=== PATIENT | female | born 1950 | race Two or more races ===

== ENCOUNTER 2022-01-26 09:30 | Inpatient (IN) | payer OTHER ==
[~2022-01-26 09:30] MED LIST: D3 + K2 DOTS 11 EACH PO; DIOVAN160 M1 PO; IRON236 MG PO; NAPROXEN SODIU220 M2 PO; [UNRECOGNIZED DRUG - OTHER]
[2022-01-31] MEDS ORDERED: ISOSORBIDE DINIT5 MG (10:27)
[2022-01-31] MEDS ORDERED: ATORVASTATIN CA40 MG (10:27)
[2022-01-31] MEDS ORDERED: VALSARTAN-HCTZ1 EAC1 (10:27)
[2022-01-31] MEDS ORDERED: DAFLONEX-XL 11300 MG (10:28)
[2022-02-02] MEDS ORDERED: INTEGRA PLUS C1 EACH PO (08:16)
[2022-02-02] MEDS ORDERED: XARELTO10 MG PO (08:16)
[2022-02-02] MEDS ORDERED: OXYC1TAB9 PO (08:16)
[2022-02-02] MEDS ORDERED: BACTRIM DS TAB1 EACH PO (08:16)
== END 2022-02-02 17:45 | disposition home or self-care (01) | DRG 470 ==
LOC: O/R 01-30 06:19 → SURG 01-30 06:19 → SURH 01-30 09:30 → SURG 01-30 13:22
PROVIDERS: ADMIT Orthopaedic Surgery Sports Medicine; ATTEND Orthopaedic Surgery Sports Medicine
PROC: 0SRC0J9 Replacement of Right Knee Joint with Synthetic Substitute, Cemented, Open Approach (ICD-10-PCS; principal; 2022-01-30 10:15)
PROC: 30233N1 Transfusion of Nonautologous Red Blood Cells into Peripheral Vein, Percutaneous Approach (ICD-10-PCS; 2022-02-01)
DX: M17.11 Unilateral primary osteoarthritis, right knee (principal); D62 Acute posthemorrhagic anemia; Z20.822 Contact with and (suspected) exposure to COVID-19

== ENCOUNTER 2024-11-24 10:32 | Outpatient (CLI) | payer OTHER ==
[~2024-11-24 10:32] MED LIST changes: +ATORVASTATIN CA40 MG; +BACTRIM DS TAB1 EACH PO; +DAFLONEX-XL 11300 MG; +INTEGRA PLUS C1 EACH PO; +ISOSORBIDE DINIT5 MG; +OXYC1TAB9 PO; +VALSARTAN-HCTZ1 EAC1; +XARELTO10 MG PO
== END 2024-11-24 10:40 | disposition home or self-care (01) ==
LOC: SONOGRAMA 10:32
PROVIDERS: ATTEND Specialist
DX: S30.92XA Unspecified superficial injury of abdominal wall, initial encounter (principal)

== ENCOUNTER 2024-12-11 11:16 | Inpatient (IN) | payer OTHER ==
[~2024-12-11] VITALS: Ht 154.9 cm; Wt 87.1 kg
--- NOTE | 2024-12-11 11:49 | NUR ---
PACIENTE FEMINA, S/V EN PARAMETROS NORMALES, C/C ULCERA AREA SACRAL, VIENE POR ADMISION DIRECTA DEL DR QUINTEROS PARA PROCEDIMIENTO QUIRURGICO, SE UBICA EN OBSERVACION PARA SER ADMITIDA.
[2024-12-11] MEDS ORDERED: VANCOMYCIN HCL 1,000 MG VIAL IV SCH (12:29)
[2024-12-11] MEDS ORDERED: CEFTRIAXONE SODIUM 2,000 MG in 0.9 % SODIUM CHLORIDE 100 ML IV SCH (12:30)
[2024-12-11] MEDS ORDERED: ACETAMINOPHEN 500 MG GEL..CAP PO PRN (12:30)
[2024-12-11] MEDS ORDERED: FAMOTIDINE/PF 20 MG in 0.9 % SODIUM CHLORIDE 8 ML IV PUSH SCH (12:30)
[2024-12-11] MEDS ORDERED: VANCOMYCIN HCL 1,000 MG VIAL ONE ×2 (12:46→22:16)
[2024-12-11] MEDS ORDERED: ACETAMINOPHEN 500 MG GEL..CAP PO ONE (12:46)
[2024-12-11] MEDS ORDERED: CEFTRIAXONE SODIUM 2,000 MG VIAL ONE (12:46)
[2024-12-11] MEDS ORDERED: FAMOTIDINE/PF 20 MG/2 ML VIAL ONE (12:47)
[2024-12-11] MEDS ORDERED: METOPROLOL TARTRATE 50 MG TABLET PO SCH (13:28)
[2024-12-11 13:30] LABS: ALT/SGPT 30.0 U/L (12-78); AST/SGOT 35.0 U/L (15-37); BILIRUBIN TOTAL 0.89 mg/dL (0.3-1.2); BUN CREA RATIO 19.0 (7.0-25.0); CREATININE SERUM 0.54 mg/dL (0.55-1.02); GFR 110.36; GLOBULINA 4.2 G/DL (2.4-3.5); GLUCOSE FASTING 144.0 mg/dL (65-100); OSMOLALITY SERUM 281.0 MOSM/KG (275-295)
[2024-12-11 13:49] LABS: URINE APPEARANCE Clear; URINE BILIRRUBIN Negative (NEGATIVE); URINE BLOOD Small; URINE COLOR Yellow; URINE GLUCOSE Negative (NEGATIVE); URINE KETONE Negative (NEGATIVE); URINE LEUKOCYTE Negative; URINE NITRATE Negative; URINE PROTEIN Negative (NEGATIVE); URINE UROBILINOGEN 0.2 E.U./dl
[2024-12-11 13:51] LABS: URINE BACTERIA 280.8 uL (0.0-1933); URINE EPITHELIAL CELLS 3.3 uL (0.0-38.8); URINE RBC 3.2 uL (0.0-20.8); URINE WBC 3.0 uL (0.0-23.2)
[2024-12-11] MEDS ORDERED: DEXTROSE 5 %-0.45 % SOD CHLORD 1,000 ML IV SCH (14:00)
[2024-12-11 14:02] LABS: URINE CAST 0.00 uL (0.0-1.40)
[2024-12-11 15:54] LABS: INR 1.1
[2024-12-11 21:27] LABS: BASO % 0.1 % (0.1-1.2); EOS # 0.02 (0.04-0.54); EOS % 0.2 % (0.7-7.0); LYMPH # 1.46 (1.18-3.74); LYMPH % 13.0 % (19.3-53.1); MEAN PLATELET VOLUME 12.30 fl (9.4-12.4); MONO # 1.71 (0.24-0.82); NEUT # 7.93 (1.56-6.13); NEUT % 70.8 % (34.0-71.1); RED CELL DISTRIBUTION WIDTH 13.7 % (11.6-14.4)
[2024-12-11 21:45] VITALS: BP 121/70; O2SAT 99
[2024-12-11 22:23] LABS: MONO % 15.3 % (4.7-12.5)
[2024-12-11 22:25] LABS: LYMPHOCYTE MAN 9.0 %; MONOCYTE MAN 13.0 %
[2024-12-11 22:26] LABS: NEUTROPHILS MAN 78.0 %
[2024-12-12] MEDS ORDERED: ENALAPRILAT DIHYDRATE 1.25 MG/ML VIAL IV PRN (05:15)
[2024-12-12 08:19] VITALS: BP 128/71; O2SAT 96
[2024-12-12] MEDS ORDERED: HYDROCHLOROTHIAZIDE 12.5 MG CAPSULE PO SCH (09:00)
[2024-12-12] MEDS ORDERED: PATIENTS OWN MEDICATION (MEDICAMENTO EN PISO) PO SCH (09:00)
[2024-12-12] MEDS ORDERED: VANCOMYCIN HCL 1,000 MG VIAL ONE ×2 (14:42→22:26)
[2024-12-12 15:15] LABS: BASO % 0.2 % (0.1-1.2); EOS # 0.02 (0.04-0.54); EOS % 0.2 % (0.7-7.0); LYMPH # 1.31 (1.18-3.74); LYMPH % 14.2 % (19.3-53.1); MEAN PLATELET VOLUME 13.10 fl (9.4-12.4); MONO # 1.48 (0.24-0.82); NEUT # 6.31 (1.56-6.13); NEUT % 68.6 % (34.0-71.1); RED CELL DISTRIBUTION WIDTH 13.7 % (11.6-14.4)
[2024-12-12 15:16] LABS: MONO % 16.1 % (4.7-12.5)
[2024-12-12 16:33] VITALS: BP 140/70; O2SAT 100
[2024-12-13 00:11] VITALS: BP 129/73; O2SAT 97
[2024-12-13] MEDS ORDERED: SILVER SULFADIAZINE 50 GM JAR TOP SCH (09:00)
[2024-12-13 09:47] VITALS: BP 148/73; O2SAT 97
[2024-12-13] MEDS ORDERED: PANTOPRAZOLE SODIUM 40 MG TABLET.DR PO NR (11:00)
[2024-12-13] MEDS ORDERED: VANCOMYCIN HCL 1,000 MG VIAL ONE ×2 (15:03→23:03)
[2024-12-13 16:06] VITALS: BP 144/76; O2SAT 100
[2024-12-14 01:08] VITALS: BP 139/76; O2SAT 100
[2024-12-14 08:13] VITALS: BP 133/66; O2SAT 100
[2024-12-14 08:36] LABS: BASO % 0.4 % (0.1-1.2); EOS # 0.12 (0.04-0.54); EOS % 1.7 % (0.7-7.0); LYMPH # 1.40 (1.18-3.74); LYMPH % 19.8 % (19.3-53.1); MEAN PLATELET VOLUME 13.40 fl (9.4-12.4); MONO # 1.40 (0.24-0.82); NEUT # 4.10 (1.56-6.13); NEUT % 57.9 % (34.0-71.1); RED CELL DISTRIBUTION WIDTH 13.6 % (11.6-14.4)
[2024-12-14 08:50] LABS: ALT/SGPT 23.0 U/L (12-78); AST/SGOT 23.0 U/L (15-37); BILIRUBIN TOTAL 0.46 mg/dL (0.3-1.2); BUN CREA RATIO 21.0 (7.0-25.0); CREATININE SERUM 0.52 mg/dL (0.55-1.02); GFR 115.27; GLOBULINA 3.1 G/DL (2.4-3.5); GLUCOSE FASTING 106.0 mg/dL (65-100); OSMOLALITY SERUM 285.0 MOSM/KG (275-295)
[2024-12-14] MEDS ORDERED: PATIENTS OWN MEDICATION (MEDICAMENTO EN PISO) PO SCH ×2 (09:00)
[2024-12-14] MEDS ORDERED: PANTOPRAZOLE SODIUM 40 MG TABLET.DR PO SCH (09:00)
[2024-12-14 10:19] LABS: MONO % 19.8 % (4.7-12.5)
[2024-12-14] MEDS ORDERED: VANCOMYCIN HCL 1,000 MG VIAL ONE ×2 (14:49→23:00)
[2024-12-14 15:00] VITALS: BP 125/83; O2SAT 98
[2024-12-15 00:57] VITALS: BP 116/68; O2SAT 100
[2024-12-15 08:00] VITALS: BP 108/74; O2SAT 95
[2024-12-15 15:36] VITALS: BP 133/80; O2SAT 100
[2024-12-15] MEDS ORDERED: VANCOMYCIN HCL 1,000 MG VIAL ONE ×2 (15:59→22:01)
[2024-12-16 02:48] VITALS: BP 117/68; O2SAT 98
[2024-12-16 08:45] VITALS: BP 133/76; O2SAT 97
[2024-12-16] MEDS ORDERED: hydrALAZINE HCL 20 MG VIAL ONE (14:40)
[2024-12-16] MEDS ORDERED: LIDOCAINE HCL 1% 20 ML VIAL IJ ONE (15:36)
[2024-12-16] MEDS ORDERED: LIDOCAINE HCL 1%/EPINEPHRINE 10 ML VIAL IJ ONE (15:37)
[2024-12-16 16:00] VITALS: BP 139/89; O2SAT 99
[2024-12-16] MEDS ORDERED: VANCOMYCIN HCL 5 MG/ML REDILUIDO IV SCH (17:00)
[2024-12-16] MEDS ORDERED: hydrALAZINE HCL 20 MG VIAL IV ONE (17:00)
[2024-12-16] MEDS ORDERED: ENALAPRILAT DIHYDRATE 1.25 MG/ML VIAL IV ONE (17:46)
[2024-12-17] VITALS: BP 113/69; O2SAT 96
[2024-12-17 06:55] LABS: BASO % 0.1 % (0.1-1.2); EOS # 0.18 (0.04-0.54); EOS % 2.0 % (0.7-7.0); LYMPH # 1.35 (1.18-3.74); LYMPH % 14.7 % (19.3-53.1); MEAN PLATELET VOLUME 9.90 fl (9.4-12.4); MONO # 1.13 (0.24-0.82); NEUT # 6.48 (1.56-6.13); NEUT % 70.4 % (34.0-71.1); RED CELL DISTRIBUTION WIDTH 13.5 % (11.6-14.4)
[2024-12-17 06:58] LABS: MONO % 12.3 % (4.7-12.5)
[2024-12-17 10:00] VITALS: BP 105/68; O2SAT 95
[2024-12-17 17:20] VITALS: BP 154/77; O2SAT 100
[2024-12-17 23:48] VITALS: BP 110/67; O2SAT 95
[2024-12-18 07:08] LABS: ALT/SGPT 19.0 U/L (12-78); AST/SGOT 14.0 U/L (15-37); BILIRUBIN TOTAL 0.58 mg/dL (0.3-1.2); BUN CREA RATIO 30.0 (7.0-25.0); CREATININE SERUM 0.5 mg/dL (0.55-1.02); GFR 120.61; GLOBULINA 3.2 G/DL (2.4-3.5); GLUCOSE FASTING 87.0 mg/dL (65-100); OSMOLALITY SERUM 283.0 MOSM/KG (275-295)
[2024-12-18 08:00] VITALS: BP 175/79; O2SAT 97
[2024-12-18] MEDS ORDERED: CHLORHEXIDINE GLUCONATE 240 ML BOTTLE TOP SCH (09:00)
[2024-12-18 16:51] VITALS: BP 180/80; O2SAT 96
[2024-12-19] VITALS: BP 138/73; O2SAT 99
[2024-12-19 07:30] LABS: BASO % 0.5 % (0.1-1.2); EOS # 0.22 (0.04-0.54); EOS % 5.1 % (0.7-7.0); LYMPH # 0.99 (1.18-3.74); LYMPH % 22.9 % (19.3-53.1); MEAN PLATELET VOLUME 10.50 fl (9.4-12.4); MONO # 0.77 (0.24-0.82); NEUT # 2.31 (1.56-6.13); NEUT % 53.2 % (34.0-71.1); RED CELL DISTRIBUTION WIDTH 13.5 % (11.6-14.4)
[2024-12-19 07:31] LABS: MONO % 17.8 % (4.7-12.5)
[2024-12-19 08:15] VITALS: BP 177/82; O2SAT 100
[2024-12-19 16:00] VITALS: BP 178/77; O2SAT 95
[2024-12-19] MEDS ORDERED: AMINO ACIDS 1 EACH TABLET PO SCH (17:00)
[2024-12-20] VITALS: BP 126/72; O2SAT 98
[2024-12-20 08:00] VITALS: BP 166/79; O2SAT 95
== END 2024-12-20 14:16 | disposition home or self-care (01) | DRG 571 ==
LOC: ER 11:16 → SURG 14:05 → SEC-K 14:05 → SURG 19:05
PROVIDERS: General Practice; Internal Medicine; Internal Medicine Hematology & Oncology; Internal Medicine Infectious Disease; ADMIT Specialist; ATTEND Specialist
PROC: B246ZZZ Ultrasonography of Right and Left Heart (ICD-10-PCS; 2024-12-11)
PROC: BT4JZZZ Ultrasonography of Kidneys and Bladder (ICD-10-PCS; 2024-12-12)
PROC: BW3GYZZ Magnetic Resonance Imaging (MRI) of Pelvic Region using Other Contrast (ICD-10-PCS; 2024-12-12)
PROC: BW3GZZZ Magnetic Resonance Imaging (MRI) of Pelvic Region (ICD-10-PCS; 2024-12-12)
PROC: 02HV33Z Insertion of Infusion Device into Superior Vena Cava, Percutaneous Approach (ICD-10-PCS; 2024-12-13)
PROC: B548ZZA Ultrasonography of Superior Vena Cava, Guidance (ICD-10-PCS; 2024-12-13)
PROC: 0J970ZZ Drainage of Back Subcutaneous Tissue and Fascia, Open Approach (ICD-10-PCS; 2024-12-16)
PROC: 30243R1 Transfusion of Nonautologous Platelets into Central Vein, Percutaneous Approach (ICD-10-PCS; 2024-12-16)
PROC: 0JBM0ZZ Excision of Left Upper Leg Subcutaneous Tissue and Fascia, Open Approach (ICD-10-PCS; 2024-12-17)
PROC: 0JBL0ZZ Excision of Right Upper Leg Subcutaneous Tissue and Fascia, Open Approach (ICD-10-PCS; 2024-12-17)
PROC: 0JB70ZZ Excision of Back Subcutaneous Tissue and Fascia, Open Approach (ICD-10-PCS; principal; 2024-12-18)
DX: L05.01 Pilonidal cyst with abscess (principal); D69.3 Immune thrombocytopenic purpura; L03.317 Cellulitis of buttock; L98.429 Non-pressure chronic ulcer of back with unspecified severity; S30.0XXA Contusion of lower back and pelvis, initial encounter; L72.3 Sebaceous cyst; T24.211A Burn of second degree of right thigh, initial encounter; T24.012A Burn of unspecified degree of left thigh, initial encounter; I10 Essential (primary) hypertension; E78.5 Hyperlipidemia, unspecified; Z88.6 Allergy status to analgesic agent; X10.0XXA Contact with hot drinks, initial encounter; Y92.239 Unspecified place in hospital as the place of occurrence of the external cause
CPT/HCPCS: 72197

== ENCOUNTER 2025-01-11 20:01 | Emergency (ER) | payer OTHER ==
[~2025-01-11] VITALS: Ht 154.9 cm; Wt 87.1 kg
[2025-01-11] MEDS ORDERED: MORPHINE SULFATE 4 MG/ML CARTRIDGE IV ONE (21:00)
[2025-01-11] MEDS ORDERED: ONDANSETRON HCL 2 MG/ML VIAL IV ONE ×2 (21:00→22:45)
[2025-01-11] MEDS ORDERED: PANTOPRAZOLE SODIUM 40 MG/VIAL VIAL IV ONE (21:00)
[2025-01-11 21:34] LABS: BASO % 0.3 % (0.1-1.2); EOS # 0.00 (0.04-0.54); EOS % 0.0 % (0.7-7.0); LYMPH # 0.91 (1.18-3.74); LYMPH % 10.1 % (19.3-53.1); MEAN PLATELET VOLUME 12.80 fl (9.4-12.4); MONO # 0.52 (0.24-0.82); MONO % 5.8 % (4.7-12.5); NEUT # 6.78 (1.56-6.13); NEUT % 75.5 % (34.0-71.1); RED CELL DISTRIBUTION WIDTH 13.7 % (11.6-14.4)
[2025-01-11 21:52] LABS: INR 1.06
[2025-01-11 21:58] LABS: ALT/SGPT 31.0 U/L (12-78); AST/SGOT 21.0 U/L (15-37); BILIRUBIN TOTAL 0.76 mg/dL (0.3-1.2); BUN CREA RATIO 21.0 (7.0-25.0); CREATININE SERUM 0.53 mg/dL (0.55-1.02); GFR 112.76; GLOBULINA 4.0 G/DL (2.4-3.5); GLUCOSE FASTING 128.0 mg/dL (65-100); OSMOLALITY SERUM 269.0 MOSM/KG (275-295)
[2025-01-11 22:08] LABS: BAND MAN 1.0 %; EOSINOPHIL MAN 1.0 %; LYMPHOCYTE MAN 14.0 %; MONOCYTE MAN 4.0 %; NEUTROPHILS MAN 80.0 %
[2025-01-11 22:09] LABS: ERYTHROCYTE SEDIMENTATION RATE 13 mm/hr (0-30)
[2025-01-11] MEDS ORDERED: 0.9 % SODIUM CHLORIDE 1,000 ML IV SCH (22:45)
[2025-01-12 00:08] LABS: URINE APPEARANCE Clear; URINE BILIRRUBIN Negative (NEGATIVE); URINE BLOOD Negative; URINE COLOR Yellow; URINE GLUCOSE Negative (NEGATIVE); URINE KETONE Negative (NEGATIVE); URINE LEUKOCYTE Negative; URINE NITRATE Negative; URINE PROTEIN 30 (NEGATIVE); URINE UROBILINOGEN 0.2 E.U./dl
[2025-01-12 00:12] LABS: URINE BACTERIA 187.1 uL (0.0-1933); URINE EPITHELIAL CELLS 17.8 uL (0.0-38.8); URINE RBC 48.5 uL (0.0-20.8); URINE WBC 8.9 uL (0.0-23.2)
[2025-01-12 00:31] LABS: URINE CAST 0.14 uL (0.0-1.40)
[2025-01-12] MEDS ORDERED: MORPHINE SULFATE 2 MG/ML SYRINGE IV ONE (01:00)
[2025-01-12] MEDS ORDERED: METOCLOPRAMIDE HCL 10 MG in DEXTROSE 5 % IN WATER 50 ML IV SCH (02:53)
[2025-01-12 06:18] LABS: BASO % 0.1 % (0.1-1.2); EOS # 0.00 (0.04-0.54); EOS % 0.0 % (0.7-7.0); LYMPH # 1.18 (1.18-3.74); LYMPH % 8.8 % (19.3-53.1); MEAN PLATELET VOLUME 12.60 fl (9.4-12.4); MONO # 1.61 (0.24-0.82); MONO % 12.0 % (4.7-12.5); NEUT # 10.13 (1.56-6.13); NEUT % 75.2 % (34.0-71.1); RED CELL DISTRIBUTION WIDTH 13.5 % (11.6-14.4)
[2025-01-12 07:36] LABS: LYMPHOCYTE MAN 21.0 %; MONOCYTE MAN 6.0 %; NEUTROPHILS MAN 72.0 %
== END 2025-01-12 08:39 | disposition home or self-care (01) ==
LOC: ER 20:02
PROVIDERS: Student in an Organized Health Care Education/Training Program
DX: K52.9 Noninfective gastroenteritis and colitis, unspecified (principal); R11.2 Nausea with vomiting, unspecified; R10.9 Unspecified abdominal pain; D69.6 Thrombocytopenia, unspecified; R11.10 Vomiting, unspecified; I10 Essential (primary) hypertension; Z88.6 Allergy status to analgesic agent
CPT/HCPCS: 36415; 74176; 96365; 96366; 99284; J2270 ×2; J2405 ×2; J2765; J3490; J7030

== ENCOUNTER 2025-01-13 07:27 | Inpatient (IN) | payer OTHER ==
[~2025-01-13] VITALS: Ht 154.9 cm; Wt 87.1 kg
--- NOTE | 2025-01-13 07:57 | NUR ---
PACIENTE EN COMPANIA DE ESPOSE LLEGA A ISAIAS DE EMERGENCIAS CON DOLOR ABDOMINAL EN QID. LA MISMA REFIERE QUE FUE RENE DE JONATHAN EL LOBITO DE SALBADOR, MICHELLE LA REFIERE QUE EL DOLOR NO DOWNS HARJEET. SE CORY SIGNOS VITALES Y SE ACOMODA EN SHAHRAM CON BARANDAS ELEVADAS.
[2025-01-13] MEDS ORDERED: PANTOPRAZOLE SODIUM 40 MG/VIAL VIAL IV PUSH ONE (08:15)
[2025-01-13] MEDS ORDERED: MORPHINE SULFATE 2 MG/ML SYRINGE IV ONE (08:15)
[2025-01-13] MEDS ORDERED: ONDANSETRON HCL 2 MG/ML VIAL IV ONE (08:15)
[2025-01-13] MEDS ORDERED: 0.9 % SODIUM CHLORIDE 1,000 ML IV SCH (08:15)
--- NOTE | 2025-01-13 09:19 | NUR ---
SE EDUCA PACIENTE ACERCA DE TRATAMIENTO MEDICO Y LA MISMA REFIERE ENTENDER Y ACEPTAR. SE PROCEDE A COLECTAR MUESTRAS DE LABORATORIO BAJO MEDIDAS ASEPTICAS Y WALTER ORDEN MEDICA. SE PROCEDE A CANALIZAR Y ADMINISTRAR M,EDICAMENTSO WALTER ORDEN MEDICO Y BAJO MEDIDAS ASEPTICAS. SE ENTREGA ENVASE PARA U/A. SE NEEL PTE EN SHAHRAM CON BARANDAS ELEVADAS Y NIVEL MAS BAJO DE LA MISMA.
[2025-01-13 09:27] LABS: BASO % 0.2 % (0.1-1.2); EOS # 0.00 (0.04-0.54); EOS % 0.0 % (0.7-7.0); LYMPH # 0.85 (1.18-3.74); LYMPH % 2.2 % (19.3-53.1); MEAN PLATELET VOLUME 12.80 fl (9.4-12.4); MONO # 11.32 (0.24-0.82); NEUT # 26.57 (1.56-6.13); NEUT % 67.6 % (34.0-71.1); RED CELL DISTRIBUTION WIDTH 14.1 % (11.6-14.4)
[2025-01-13 09:50] LABS: INR 1.28
[2025-01-13 10:13] LABS: ALT/SGPT 28.0 U/L (12-78); AST/SGOT 23.0 U/L (15-37); BILIRUBIN TOTAL 0.99 mg/dL (0.3-1.2); BILIRUBIN,CONJUGATED 0.32 mg/dL (0.0-0.2); BUN CREA RATIO 15.0 (7.0-25.0); CREATININE SERUM 0.59 mg/dL (0.55-1.02); GFR 99.64; GLOBULINA 3.4 G/DL (2.4-3.5); GLUCOSE FASTING 151.0 mg/dL (65-100); OSMOLALITY SERUM 270.0 MOSM/KG (275-295)
[2025-01-13 10:18] LABS: BAND MAN 1.0 %; LYMPHOCYTE MAN 1.0 %; MONOCYTE MAN 27.0 %; NEUTROPHILS MAN 68.0 %
[2025-01-13 10:22] LABS: MONO % 28.8 % (4.7-12.5)
[2025-01-13] MEDS ORDERED: PIPERACILLIN/TAZOBACTAM SODIUM 3.375 GM in DEXTROSE 5 % IN WATER 100 ML IV ONE (11:45)
[2025-01-13 11:58] LABS: URINE APPEARANCE Cloudy; URINE BILIRRUBIN Small (NEGATIVE); URINE BLOOD Small; URINE COLOR Orange; URINE GLUCOSE Negative (NEGATIVE); URINE KETONE Trace (NEGATIVE); URINE LEUKOCYTE Small; URINE NITRATE Positive; URINE UROBILINOGEN 1.0 E.U./dl
[2025-01-13 11:59] LABS: URINE BACTERIA 480.0 uL (0.0-1933); URINE CAST 8.94 uL (0.0-1.40); URINE EPITHELIAL CELLS 67.6 uL (0.0-38.8); URINE RBC 78.9 uL (0.0-20.8); URINE WBC 19.3 uL (0.0-23.2)
[2025-01-13] MEDS ORDERED: METRONIDAZOLE/SODIUM CHLORIDE 500 MG/100 ML PIGGYBACK IV ONE ×2 (12:00→12:36)
[2025-01-13] MEDS ORDERED: CIPROFLOXACIN IN 5 % DEXTROSE 200 ML IV ONE (12:00)
[2025-01-13 12:06] LABS: URINE PROTEIN 100 (NEGATIVE)
[2025-01-13 12:11] LABS: URINE MUCUS HEAVY
[2025-01-13] MEDS ORDERED: CIPROFLOXACIN IN 5 % DEXTROSE 400 MG/200 ML PIGGYBAG IV ONE (12:36)
[2025-01-13] MEDS ORDERED: ACETAMINOPHEN 325 MG TABLET PO PRN (13:00)
[2025-01-13] MEDS ORDERED: MORPHINE SULFATE 2 MG/ML SYRINGE IV PRN (13:00)
[2025-01-13] MEDS ORDERED: ONDANSETRON HCL 4 MG in 0.9 % SODIUM CHLORIDE 50 ML IV PRN (13:00)
[2025-01-13] MEDS ORDERED: hydrALAZINE HCL 20 MG VIAL IV PRN (13:15)
[2025-01-13 13:48] VITALS: BP 117/87
[2025-01-13 14:46] LABS: COVID-19 AG NEGATIVE (NEGATIVE)
[2025-01-13] MEDS ORDERED: ACETAMINOPHEN 500 MG GEL..CAP PO PRN (16:30)
[2025-01-13] MEDS ORDERED: PIPERACILLIN/TAZOBACTAM SODIUM 3.375 GM in DEXTROSE 5 % IN WATER 100 ML IV SCH (20:00)
[2025-01-13] MEDS ORDERED: VANCOMYCIN HCL 1,000 MG VIAL IV SCH (21:00)
[2025-01-13] MEDS ORDERED: PANTOPRAZOLE SODIUM 40 MG/VIAL VIAL IV SCH (21:00)
[2025-01-14 02:36] VITALS: BP 158/80; O2SAT 98
[2025-01-14 06:25] LABS: BASO % 0.2 % (0.1-1.2); EOS # 0.00 (0.04-0.54); EOS % 0.0 % (0.7-7.0); LYMPH # 1.05 (1.18-3.74); LYMPH % 2.5 % (19.3-53.1); MEAN PLATELET VOLUME 12.30 fl (9.4-12.4); MONO # 9.42 (0.24-0.82); NEUT # 31.52 (1.56-6.13); NEUT % 74.0 % (34.0-71.1); RED CELL DISTRIBUTION WIDTH 14.1 % (11.6-14.4)
[2025-01-14 06:47] LABS: ALT/SGPT 22.0 U/L (12-78); AST/SGOT 23.0 U/L (15-37); BILIRUBIN TOTAL 1.01 mg/dL (0.3-1.2); BUN CREA RATIO 21.0 (7.0-25.0); CREATININE SERUM 0.53 mg/dL (0.55-1.02); GFR 112.76; GLOBULINA 3.4 G/DL (2.4-3.5); GLUCOSE FASTING 95.0 mg/dL (65-100); OSMOLALITY SERUM 266.0 MOSM/KG (275-295)
[2025-01-14 06:52] LABS: ERYTHROCYTE SEDIMENTATION RATE 72 mm/hr (0-30)
[2025-01-14 07:25] LABS: LYMPHOCYTE MAN 2.0 %; MONO % 22.1 % (4.7-12.5); MONOCYTE MAN 19.0 %; NEUTROPHILS MAN 78.0 %
[2025-01-14 08:26] VITALS: BP 133/75; O2SAT 100
[2025-01-14] MEDS ORDERED: PATIENTS OWN MEDICATION (MEDICAMENTO EN PISO) PO SCH (09:00)
[2025-01-14] MEDS ORDERED: CEFTRIAXONE SODIUM 2,000 MG in 0.9 % SODIUM CHLORIDE 100 ML IV SCH (09:00)
[2025-01-14 17:42] VITALS: BP 150/82
[2025-01-14] MEDS ORDERED: fentaNYL CITRATE 50 MCG/ML AMPUL IV PUSH ONE (17:45)
[2025-01-14] MEDS ORDERED: MIDAZOLAM HCL 2 MG/2 ML VIAL IV PUSH ONE (17:45)
[2025-01-14] MEDS ORDERED: MEROPENEM 500 MG/VIAL VIAL IV SCH (20:00)
[2025-01-15 02:57] VITALS: BP 150/80; O2SAT 98
[2025-01-15 10:01] VITALS: BP 143/77; O2SAT 96
[2025-01-15 12:46] LABS: BUN CREA RATIO 47.0 (7.0-25.0); CHOL HDL RATIO 2.9 (0-5.0); CREATININE SERUM 0.32 mg/dL (0.55-1.02); GFR 201.85; GLUCOSE FASTING 84.0 mg/dL (65-100); HDL 49.0 mg/dl (40-60); LDL 77.0 mg/dl (0-130); OSMOLALITY SERUM 278.0 MOSM/KG (275-295); VLDL 17.0 (0-39)
[2025-01-15] MEDS ORDERED: AA 2.36%/D6.8W/FAT/E-LYTES NO9 1,440 ML IV SCH (17:00)
[2025-01-15 18:41] VITALS: BP 132/77; O2SAT 98
[2025-01-16 03:32] VITALS: BP 163/82; O2SAT 97
[2025-01-16 06:18] LABS: BASO % 0.2 % (0.1-1.2); EOS # 0.04 (0.04-0.54); EOS % 0.2 % (0.7-7.0); LYMPH # 1.08 (1.18-3.74); LYMPH % 5.0 % (19.3-53.1); MEAN PLATELET VOLUME 12.70 fl (9.4-12.4); MONO # 2.77 (0.24-0.82); NEUT # 17.38 (1.56-6.13); NEUT % 80.9 % (34.0-71.1); RED CELL DISTRIBUTION WIDTH 14.1 % (11.6-14.4)
[2025-01-16 06:35] LABS: MONO % 12.9 % (4.7-12.5)
[2025-01-16 06:49] LABS: ERYTHROCYTE SEDIMENTATION RATE 63 mm/hr (0-30)
[2025-01-16 06:55] LABS: ALT/SGPT 29.0 U/L (12-78); AST/SGOT 29.0 U/L (15-37); BILIRUBIN TOTAL 0.64 mg/dL (0.3-1.2); BUN CREA RATIO 43.0 (7.0-25.0); CREATININE SERUM 0.28 mg/dL (0.55-1.02); GFR 235.49; GLOBULINA 3.1 G/DL (2.4-3.5); GLUCOSE FASTING 119.0 mg/dL (65-100); OSMOLALITY SERUM 282.0 MOSM/KG (275-295)
[2025-01-16 09:20] VITALS: BP 160/76; O2SAT 98
[2025-01-16] MEDS ORDERED: MIDAZOLAM HCL 2 MG/2 ML VIAL IV PUSH ONE (16:45)
[2025-01-16] MEDS ORDERED: fentaNYL CITRATE 50 MCG/ML AMPUL IV PUSH ONE (16:45)
[2025-01-16 18:25] VITALS: BP 160/85; O2SAT 97
[2025-01-17 03:57] VITALS: BP 161/76; O2SAT 98
[2025-01-17 08:18] LABS: BASO % 0.1 % (0.1-1.2); EOS # 0.06 (0.04-0.54); EOS % 0.6 % (0.7-7.0); LYMPH # 0.90 (1.18-3.74); LYMPH % 9.1 % (19.3-53.1); MEAN PLATELET VOLUME 11.10 fl (9.4-12.4); MONO # 1.49 (0.24-0.82); NEUT # 7.29 (1.56-6.13); NEUT % 74.1 % (34.0-71.1); RED CELL DISTRIBUTION WIDTH 13.5 % (11.6-14.4)
[2025-01-17 08:25] LABS: MONO % 15.1 % (4.7-12.5)
[2025-01-17 10:00] LABS: ALT/SGPT 113.0 U/L (12-78); AST/SGOT 99.0 U/L (15-37); BILIRUBIN TOTAL 0.67 mg/dL (0.3-1.2); BUN CREA RATIO 19.0 (7.0-25.0); GFR 256.51; GLOBULINA 3.4 G/DL (2.4-3.5); GLUCOSE FASTING 122.0 mg/dL (65-100); OSMOLALITY SERUM 272.0 MOSM/KG (275-295)
[2025-01-17 10:04] VITALS: BP 171/74; O2SAT 96
[2025-01-17 10:09] LABS: CREATININE SERUM 0.26 mg/dL (0.55-1.02)
[2025-01-17] MEDS ORDERED: ENALAPRILAT DIHYDRATE 1.25 MG/ML VIAL IV PRN (16:30)
[2025-01-17] MEDS ORDERED: POTASSIUM CHLORIDE IN WATER 100 ML IV NR (17:00)
[2025-01-17 18:08] VITALS: BP 160/85
[2025-01-18 02:25] VITALS: BP 170/96; O2SAT 98
[2025-01-18 10:21] VITALS: BP 179/71; O2SAT 96
[2025-01-18] MEDS ORDERED: AMPICILLIN SODIUM/SULBACTAM NA 3,000 MG VIAL IV SCH (18:00)
[2025-01-18 18:15] VITALS: BP 150/100
[2025-01-19 02:31] VITALS: BP 189/102
[2025-01-19 08:51] LABS: BASO % 0.5 % (0.1-1.2); EOS # 0.39 (0.04-0.54); EOS % 5.9 % (0.7-7.0); LYMPH # 1.30 (1.18-3.74); LYMPH % 19.5 % (19.3-53.1); MEAN PLATELET VOLUME 11.50 fl (9.4-12.4); MONO # 0.91 (0.24-0.82); MONO % 13.7 % (4.7-12.5); NEUT # 3.93 (1.56-6.13); NEUT % 58.9 % (34.0-71.1); RED CELL DISTRIBUTION WIDTH 14.0 % (11.6-14.4)
[2025-01-19 09:14] LABS: ALT/SGPT 62.0 U/L (12-78); AST/SGOT 27.0 U/L (15-37); BILIRUBIN TOTAL 0.45 mg/dL (0.3-1.2); BUN CREA RATIO 29.0 (7.0-25.0); CREATININE SERUM 0.24 mg/dL (0.55-1.02); GFR 281.33; GLOBULINA 3.3 G/DL (2.4-3.5); GLUCOSE FASTING 101.0 mg/dL (65-100); OSMOLALITY SERUM 281.0 MOSM/KG (275-295)
[2025-01-19 09:29] LABS: UREA CLEARANCE 42.5 ML/MIN
[2025-01-19 09:41] LABS: BILIRUBIN,CONJUGATED 0.16 mg/dL (0.0-0.2); CHOL HDL RATIO 4.3 (0-5.0); HDL 33.0 mg/dl (40-60); LDL 91.0 mg/dl (0-130); VLDL 17.0 (0-39)
[2025-01-19 18:05] VITALS: BP 196/85; O2SAT 98
[2025-01-20 02:27] VITALS: BP 200/100; O2SAT 98
[2025-01-20] MEDS ORDERED: AMLODIPINE BESYLATE 5 MG TABLET PO SCH (09:00)
[2025-01-20 09:14] VITALS: BP 174/84; O2SAT 99
[2025-01-20 17:46] VITALS: BP 186/94
[2025-01-21 02:44] VITALS: BP 175/95; O2SAT 98
[2025-01-21 09:00] VITALS: BP 170/80; O2SAT 90
[2025-01-21] MEDS ORDERED: SODIUM CHLORIDE 0.45 % 1,000 ML IV SCH (09:00)
[2025-01-21 17:45] VITALS: BP 188/82
[2025-01-22 01:51] VITALS: BP 186/98; O2SAT 98
[2025-01-22 08:08] LABS: BASO % 1.0 % (0.1-1.2); EOS # 0.21 (0.04-0.54); EOS % 5.2 % (0.7-7.0); LYMPH # 1.20 (1.18-3.74); LYMPH % 29.9 % (19.3-53.1); MEAN PLATELET VOLUME 10.40 fl (9.4-12.4); MONO # 0.38 (0.24-0.82); MONO % 9.5 % (4.7-12.5); NEUT # 2.11 (1.56-6.13); NEUT % 52.4 % (34.0-71.1); RED CELL DISTRIBUTION WIDTH 13.9 % (11.6-14.4)
[2025-01-22 08:16] LABS: ERYTHROCYTE SEDIMENTATION RATE 30 mm/hr (0-30)
[2025-01-22 08:31] LABS: ALT/SGPT 41.0 U/L (12-78); AST/SGOT 20.0 U/L (15-37); BILIRUBIN TOTAL 0.47 mg/dL (0.3-1.2); BUN CREA RATIO 18.0 (7.0-25.0); CREATININE SERUM 0.34 mg/dL (0.55-1.02); GFR 188.21; GLOBULINA 3.3 G/DL (2.4-3.5); GLUCOSE FASTING 100.0 mg/dL (65-100); OSMOLALITY SERUM 281.0 MOSM/KG (275-295)
[2025-01-22 08:46] VITALS: BP 160/70; O2SAT 100
[2025-01-22] MEDS ORDERED: AMLODIPINE BESYLATE 10 MG TABLET PO SCH (09:00)
[2025-01-22 20:52] VITALS: BP 160/79; O2SAT 97
[2025-01-23 01:49] VITALS: BP 176/79; O2SAT 98
[2025-01-23 08:39] LABS: BASO % 0.9 % (0.1-1.2); EOS # 0.26 (0.04-0.54); EOS % 4.6 % (0.7-7.0); LYMPH # 1.53 (1.18-3.74); LYMPH % 27.2 % (19.3-53.1); MEAN PLATELET VOLUME 10.30 fl (9.4-12.4); MONO # 0.53 (0.24-0.82); MONO % 9.4 % (4.7-12.5); NEUT # 3.17 (1.56-6.13); NEUT % 56.5 % (34.0-71.1); RED CELL DISTRIBUTION WIDTH 13.8 % (11.6-14.4)
[2025-01-23 09:08] LABS: ALT/SGPT 44.0 U/L (12-78); AST/SGOT 19.0 U/L (15-37); BILIRUBIN TOTAL 0.57 mg/dL (0.3-1.2); BUN CREA RATIO 28.0 (7.0-25.0); CREATININE SERUM 0.4 mg/dL (0.55-1.02); GFR 156.03; GLOBULINA 3.4 G/DL (2.4-3.5); GLUCOSE FASTING 94.0 mg/dL (65-100); OSMOLALITY SERUM 280.0 MOSM/KG (275-295)
[2025-01-23 09:25] VITALS: BP 158/80; O2SAT 96
[2025-01-23 17:52] VITALS: BP 147/78
[2025-01-24 03:27] VITALS: BP 170/89; O2SAT 98
[2025-01-24 08:42] VITALS: BP 138/79
[2025-01-24] MEDS ORDERED: AMLODIPINE BESY10 MG PO (13:10)
[2025-01-24] MEDS ORDERED: INTESTINEX680 M1 PO (13:10)
== END 2025-01-24 13:45 | disposition home or self-care (01) | DRG 417 ==
LOC: ER 07:27 → MEDJ 13:44 → SEC-K 13:44 → MEDJ 16:10
PROVIDERS: General Practice; Internal Medicine; ADMIT Internal Medicine; ATTEND Internal Medicine
PROC: BW40ZZZ Ultrasonography of Abdomen (ICD-10-PCS; 2025-01-13)
PROC: 02HV33Z Insertion of Infusion Device into Superior Vena Cava, Percutaneous Approach (ICD-10-PCS; 2025-01-14)
PROC: CF1C1ZZ Planar Nuclear Medicine Imaging of Hepatobiliary System, All using Technetium 99m (Tc-99m) (ICD-10-PCS; 2025-01-14)
PROC: 30243N1 Transfusion of Nonautologous Red Blood Cells into Central Vein, Percutaneous Approach (ICD-10-PCS; 2025-01-15)
PROC: 0FT44ZZ Resection of Gallbladder, Percutaneous Endoscopic Approach (ICD-10-PCS; principal; 2025-01-16)
DX: K80.00 Calculus of gallbladder with acute cholecystitis without obstruction (principal); L89.153 Pressure ulcer of sacral region, stage 3; I10 Essential (primary) hypertension